=== PATIENT | male | born 1975 | race Caucasian/White ===

== ENCOUNTER 2016-06-30 12:12 | Emergency (ER) | payer OTHER ==
[2016-06-30 12:56] LABS: BASO % 0.4 % (0.0-1.0); EOS # 0.1 K/mm3 (0.0-0.50); EOS % 2.6 % (0.0-3.0); LARGE UNSTAINED CELL # 0.1 K/mm3 (0.0-0.4); LARGE UNSTAINED CELL % 2.6 % (0.0-4.0); LYMPH # 0.9 K/mm3 (1.5-4.5); LYMPH % 21.5 % (24.0-44.0); MEAN CORPUSCULAR HEMOGLOBIN 31.6 pg (27.0-33.0); MONO # 0.3 K/mm3 (0.0-0.8); MONO % 6.8 % (0.0-5.0); NEUTROPHILS # 2.8 K/mm3 (1.8-7.7); PLATELET COUNT, AUTOMATED 256 k/mm3 (150-450); RED CELL DISTRIBUTION WIDTH 12.8 % (11.5-14.5); WHITE BLOOD COUNT 4.2 K/mm3 (4.0-10.0)
[2016-06-30 13:17] LABS: ANION GAP 11 MEQ/L (8-16); BLOOD UREA NITROGEN 8 MG/DL (7-18); CALCIUM LEVEL 8.3 MG/DL (8.5-10.1); CARBON DIOXIDE LEVEL 25 MEQ/L (21-32); CHLORIDE LEVEL 102 MEQ/L (98-107); CREATININE FOR GFR 0.72 MG/DL (0.70-1.30); GLOMERULAR FILTRATION RATE > 60.0 (>60); GLUCOSE, FASTING 159 MG/DL (70-105); POTASSIUM SERUM 3.8 MEQ/L (3.5-5.1); SODIUM LEVEL 138 MEQ/L (136-145)
[2016-06-30] MEDS ORDERED: THIAMINE 100 MG TAB As Ordered ONE (14:26)
[2016-06-30] MEDS ORDERED: OXAZEPAM 15 MG CAP As Ordered ONE (14:26)
[2016-06-30 14:33] LABS: AMPHETAMINES LEVEL URINE NEGATIVE (NEGATIVE); BENZODIAZEPINES URINE NEGATIVE (NEGATIVE); COCAINE METABOLITE URINE NEGATIVE (NEGATIVE); CONTROL LINE INT CTR LINE PRESENT; METHADONE URINE NEGATIVE (NEGATIVE); OPIATES URINE NEGATIVE (NEGATIVE); TRICYCLIC ANTIDEPRESS URINE NEGATIVE (NEGATIVE)
[2016-06-30 14:47] LABS: FREE T4 0.77 NG/DL (0.76-1.46)
--- NOTE | 2016-06-30 17:22 | EDDOCDS ---
Nurse's Notes [facility] Name: Ladarius Merino Age: 40 yrs Sex: Male : 1975 Arrival Date: 06/30/2016 Time: 12:12 Bed 14 Private MD: Camilo Harrison A. Diagnosis: Palpitations Presentation: 06/30 12:19 Presenting complaint: Patient states: has been on suboxine , took his last dose 8 mg mk4 yesterday and started this new herbal supplement rhianna Guy... has also been drinking alcohol. 12:24 Adult Sepsis Screening: The patient does not have new or worsening altered mentation. mk4 Patient's respiratory rate is less than 22. Systolic blood pressure is greater than 100. Patient has a qSOFA score of 0- Negative Sepsis Screen. Suicide/Homicide risk assessment- the patient denies having any suicidal and/or homicidal ideations and does not present with any other emotional, behavioral or mental health complaints. Status: Patient is not a family services worker or dependent. Transition of care: patient was not received from another setting of care. 12:24 Acuity: MIKA Level 3 mk4 12:24 Method Of Arrival: Ambulance mk4 Triage Assessment: 12:24 General: Appears in no apparent distress, Behavior is agitated, restless, jittery. mk4 17:20 HIV screening NA for this visit Offered previously. mk4 Historical: - Allergies: no known allergies; - Home Meds: 1. herbal supplement called Malena - PMHx: Cervicle spine fracture; Fractured left wrist; Hypertension; - PSHx: Left flexor tendon repair; Nasal surgery; - Social history: Smoking status: Patient uses tobacco products, heavy tobacco smoker. No barriers to communication noted, The patient speaks fluent Macedonian. - Family history: Not pertinent. - : The pt / caregiver states he / she is not on anticoagulants. Home medication list is obtained from the patient. - Exposure Risk Screening:: None identified. Screenin:40 Screening information is obtained from the patient. Fall risk: No risks identified. mk4 Assistance ADL's: requires no assistance with activities of daily living. Abuse/DV Screen: The patient / caregiver reports he/she is: not in a situation that causes fear, pain or injury. Nutritional screening: No deficits noted. Advance Directives: Currently, there is no health care proxy. There is no active DNR order. There is no living will. There is no Power of Rotor Assembler. Advance directive information has not previously been placed in an [facility] medical record. home support is adequate. Assessment: 12:20 General: Appears distressed, Behavior is cooperative, restless, pt states he took 2 mk4 grams of a herbal supplement in tea form named Kratom and felt shaky and nervous and tingly afterward. 12:49 Reassessment: Patient denies pain at this time. Patient states feeling better. Patient mk4 states symptoms have improved. General: Appears in no apparent distress. 12:52 General: Appears poison control contacted with recomendations. mk4 14:21 Reassessment: Patient states feeling better. Patient states symptoms have improved. mk4 General: Appears in no apparent distress, comfortable, Behavior is cooperative. Cardiovascular: Rhythm is sinus rhythm. 14:45 Reassessment: Patient denies pain at this time. Patient states feeling better. General: mk4 Appears in no apparent distress, comfortable. 14:47 Pain: Denies pain. Neurological: Level of Consciousness is awake, alert, Oriented to mk4 person, place, time. Derm: Skin is intact, is healthy with good turgor. 15:18 General: Appears in no apparent distress, comfortable, Behavior is cooperative, oob mk4 ambulating to bathroom, gait steady. Neurological: Level of Consciousness is awake, alert, Oriented to person. Cardiovascular: Rhythm is sinus rhythm No ectopy. 16:45 General: Appears in no apparent distress, comfortable, Behavior is cooperative, social mk4 worker in speaking with pt. 16:52 General: Appears in no apparent distress, comfortable, Behavior is cooperative. mk4 Neurological: Level of Consciousness is awake, alert, Oriented to person, place, time. 17:18 General: Appears in no apparent distress, comfortable. mk4 Social Work Consult: 16:28 Social Work Note: Met pt at bedside regarding drug abuse. Pt report a hx of opiate ml4 abuse, and now has been taking Suboxone, last dose yesterday. Admits purchasing Kratom and mixed his supplement with coffee this am and immediately felt shaky and complained of chest pain. He adamantly denies SI and HI, able to CFS. Referrals for outpt services was given at bedside and directed to contact Dr. Pro for further tx. Message was left on Dr. Su's voice mail(with pt's permission). No further concerns noted. Vital Signs: 12:11 Pulse 82 MON; Pulse Ox 98% ; mk4 12:12 BP 193 / 72 (auto/); mk4 12:22 BP 148 / 91; Pulse 105; Resp 20; Temp 99.8; Pulse Ox 98% ; Weight 74.84 kg; Height 5 jlf ft. 5 in. (165.10 cm); 12:39 BP 157 / 107 (auto/); mk4 12:39 Pulse 98 MON; Pulse Ox 95% ; mk4 12:40 Pulse 102 MON; Pulse Ox 96% ; mk4 12:42 BP 143 / 62 (auto/); mk4 12:42 Pulse 82 MON; Pulse Ox 96% ; mk4 12:54 BP 146 / 89 (auto/); mk4 12:54 Pulse 100 MON; Pulse Ox 94% ; mk4 13:00 BP 130 / 59 (auto/); mk4 13:00 Pulse 84 MON; Pulse Ox 99% ; mk4 13:02 BP 165 / 94 LA Supine; Pulse 99; mk4 13:04 BP 161 / 95 Sitting; Pulse 113 RA; mk4 13:04 BP 179 / 119 Standing; Pulse 116 RA; mk4 13:12 BP 143 / 63 (auto/); mk4 13:13 Pulse 82 MON; Pulse Ox 96% ; mk4 13:24 BP 165 / 83 (auto/); mk4 13:24 Pulse 100 MON; Pulse Ox 96% ; mk4 13:32 BP 145 / 63 (auto/); mk4 13:32 Pulse 68 MON; Pulse Ox 99% ; mk4 13:42 BP 174 / 66 (auto/); mk4 13:43 Pulse 86 MON; Pulse Ox 96% ; mk4 13:54 BP 139 / 89 (auto/); mk4 13:54 Pulse 96 MON; Pulse Ox 94% ; mk4 14:11 BP 162 / 94 (auto/); mk4 14:11 Pulse 102 MON; Pulse Ox 96% ; mk4 14:24 BP 155 / 102 (auto/); mk4 14:24 Pulse 94 MON; Pulse Ox 96% ; mk4 14:39 BP 154 / 88 (auto/); mk4 14:39 Pulse 88 MON; Pulse Ox 95% ; mk4 14:42 BP 159 / 66 (auto/); mk4 14:42 Pulse 66 MON; Pulse Ox 96% ; mk4 14:52 Pulse 66 MON; Pulse Ox 97% ; mk4 14:53 BP 141 / 63 (auto/); mk4 17:09 BP 140 / 83 (auto/); mk4 17:09 Pulse 86 MON; Resp 20; Temp 98; Pulse Ox 93% ; mk4 12:22 Body Mass Index 27.46 (74.84 kg, 165.10 cm) [facility] Vitals: 12:24 Log In Time N/A - ambulance arrival. mk4 ED Course: 12:14 Patient visited by Urvashi Steinberg, Grounds Foreman. lbd 12:14 Camilo Harrison is Private Physician. lbd 12:14 Patient moved to Waiting lbd 12:15 Patient moved to 14 lbd 12:22 Patient visited by Shruthi Rios PCA. jlf 12:22 Patient visited by Shruthi Rios PCA. jlf 12:25 Triage Initiated mk4 12:40 Maintain field IV. Site clean & dry. Gauge & site: left ac . IV. mk4 12:41 MED Profile Sent. mk4 12:41 CBC with Diff Sent. mk4 12:46 Patient visited by Saravanan Han PCA. jrd 12:46 EKG done. (by ED staff). Reviewed by Carie Raymundo MD. jrd 12:47 The patient / caregiver is instructed regarding the plan of care and ED course. Cardiac mk4 monitor on. Pulse ox on. NIBP on. 12:53 Romina Ugarte DO is PHCP. jo4 12:54 Carie Raymundo MD is Attending Physician. jo4 12:59 Patient visited by Romina Ugarte DO. jo4 13:06 No procedures done that require assistance. mk4 13:35 Patient visited by Janett Lynch RN. mk4 14:04 Patient visited by Shruthi Rios PCA. jlf 14:34 Patient visited by Shruthi Rios PCA. jlf 15:15 Patient visited by Janett Lynch, TOMASZ. mk4 15:51 Patient visited by Janett Lynch RN. mk4 16:11 [facility] Payment Agreement was scanned into [employer] and attached to record. zo 16:21 Patient visited by Janett Lynch RN. mk4 16:50 PSA Outpatient Referrals was scanned into [employer] and attached to record. ml4 16:52 Patient visited by Janett Lynch RN. mk4 17:00 Camilo Harrison MD is Referral Physician. jo4 17:18 Discontinued IV lock bleeding controlled, pressure dressing applied. mk4 Administered Medications: 13:05 Drug: NS 0.9% 1000 ml [sodium chloride 0.9 % intravenous solution] Route: IV; Rate: mk4 bolus; Site: left antecubital; 14:41 Drug: Oxazepam 30 mg [oxazepam 15 mg capsule (2 caps)] Route: PO; mk4 14:41 Drug: Thiamine 100 mg [thiamine HCl (vitamin B1) 100 mg tablet (1 tabs)] Route: PO; mk4 Order Results: Lab Order: CBC with Diff; SPEC'M 06/30/16 12:39 Test: WHITE BLOOD COUNT; Value: 4.2; Range: 4.0-10.0; Units: K/mm3; Status: F Test: RED BLOOD COUNT; Value: 4.66; Range: 4.30-6.10; Units: M/mm3; Status: F Test: HEMOGLOBIN; Value: 14.7; Range: 14.0-18.0; Units: g/dl; Status: F Test: HEMATOCRIT; Value: 43.4; Range: 42.0-52.0; Units: %; Status: F Test: MEAN CORPUSCULAR VOLUME; Value: 93.0; Range: 80.0-96.0; Units: fl; Status: F Test: MEAN CORPUSCULAR HEMOGLOBIN; Value: 31.6; Range: 27.0-33.0; Units: pg; Status: F Test: MEAN CORPUSCULAR HGB CONC; Value: 34.0; Range: 32.0-36.5; Units: g/dl; Status: F Test: RED CELL DISTRIBUTION WIDTH; Value: 12.8; Range: 11.5-14.5; Units: %; Status: F Test: PLATELET COUNT, AUTOMATED; Value: 256; Range: 150-450; Units: k/mm3; Status: F Test: NEUTROPHILS %; Value: 66.0; Range: 36.0-66.0; Units: %; Status: F Test: LYMPH %; Value: 21.5; Range: 24.0-44.0; Abnormal: Below low normal; Units: %; Status: F Test: MONO %; Value: 6.8; Range: 0.0-5.0; Abnormal: Above high normal; Units: %; Status: F Test: EOS %; Value: 2.6; Range: 0.0-3.0; Units: %; Status: F Test: BASO %; Value: 0.4; Range: 0.0-1.0; Units: %; Status: F Test: LARGE UNSTAINED CELL %; Value: 2.6; Range: 0.0-4.0; Units: %; Status: F Test: NEUTROPHILS #; Value: 2.8; Range: 1.8-7.7; Units: K/mm3; Status: F Test: LYMPH #; Value: 0.9; Range: 1.5-4.5; Abnormal: Below low normal; Units: K/mm3; Status: F Test: MONO #; Value: 0.3; Range: 0.0-0.8; Units: K/mm3; Status: F Test: EOS #; Value: 0.1; Range: 0.0-0.50; Units: K/mm3; Status: F Test: BASO #; Value: 0.0; Range: 0.0-0.2; Units: K/mm3; Status: F Test: LARGE UNSTAINED CELL #; Value: 0.1; Range: 0.0-0.4; Units: K/mm3; Status: F Lab Order: MED Profile; SPEC'M 06/30/16 12:39 Test: GLUCOSE, FASTING; Value: 159; Range: 70-105; Abnormal: Above high normal; Units: MG/DL; Status: F Test: BLOOD UREA NITROGEN; Value: 8; Range: 7-18; Units: MG/DL; Status: F Test: CREATININE FOR GFR; Value: 0.72; Range: 0.70-1.30; Units: MG/DL; Status: F Test: GLOMERULAR FILTRATION RATE; Value: > 60.0; Range: >60; Status: F Test: SODIUM LEVEL; Value: 138; Range: 136-145; Units: MEQ/L; Status: F Test: POTASSIUM SERUM; Value: 3.8; Range: 3.5-5.1; Units: MEQ/L; Status: F Test: CHLORIDE LEVEL; Value: 102; Range: 98-107; Units: MEQ/L; Status: F Test: CARBON DIOXIDE LEVEL; Value: 25; Range: 21-32; Units: MEQ/L; Status: F Test: ANION GAP; Value: 11; Range: 8-16; Units: MEQ/L; Status: F Test: CALCIUM LEVEL; Value: 8.3; Range: 8.5-10.1; Abnormal: Below low normal; Units: MG/DL; Status: F Test Note: ; Units are mL/min/1.73 m2 Chronic Kidney Disease Staging per NKF: Stage I & II GFR >=60 Normal to Mildly Decreased Stage III GFR 30-59 Moderately Decreased Stage IV GFR 15-29 Severely Decreased Stage V GFR <15 Very Little GFR Left ESRD GFR <15 on CRIMINAL INTELLIGENCE SPECIALIST Lab Order: Urine Toxicology; SPEC'M 06/30/16 14:09 Test: AMPHETAMINES LEVEL URINE; Value: NEGATIVE; Range: NEGATIVE; Status: F Test: BARBITURATES URINE; Value: NEGATIVE; Range: NEGATIVE; Status: F Test: BENZODIAZEPINES URINE; Value: NEGATIVE; Range: NEGATIVE; Status: F Test: CANNABINOIDS URINE; Value: POSITIVE; Range: NEGATIVE; Abnormal: Above high normal; Status: F Test: COCAINE METABOLITE URINE; Value: NEGATIVE; Range: NEGATIVE; Status: F Test: METHADONE URINE; Value: NEGATIVE; Range: NEGATIVE; Status: F Test: OPIATES URINE; Value: NEGATIVE; Range: NEGATIVE; Status: F Test: TRICYCLIC ANTIDEPRESS URINE; Value: NEGATIVE; Range: NEGATIVE; Status: F Test Note: ; FALSE POSITIVE RESULTS CAN BE CAUSED BY THE USE OF PANTOPRAZOLE (PROTONIX). Lab Order: FT4&TSH PANEL; SPEC'M 06/30/16 12:39 Test: THYROID STIMULATING HORMONE; Value: 0.749; Range: 0.358-3.740; Units: uIU/ML; Status: F Test: FREE T4; Value: 0.77; Range: 0.76-1.46; Units: NG/DL; Status: F Outcome: 17:00 Discharge ordered by Provider. jo4 17:18 Discharge Assessment: Patient awake, alert and oriented x 3. No cognitive and/or mk4 functional deficits noted. Patient verbalized understanding of disposition instructions. Patient awake and alert. Discharge Assessment: patient administered narcotics - no. The following High Risk Discharge criteria are identified: None. Discharged to home ambulatory. Condition: good Condition: stable. No special radiology studies were completed. Property sent home with patient. 17:21 Patient left the ED. mk4 Signatures: Urvashi Steinberg, Grounds Foreman Unit lbd Curly Heck, RN RN Marleny Laws, PSA PSA ml4 Jacob, Janett Silva RN RN mk4 Shruthi Rios, DIRECTOR OF RESIDENTIAL SERVICES DIRECTOR OF RESIDENTIAL SERVICES jlf Saravanan Han, DIRECTOR OF RESIDENTIAL SERVICES DIRECTOR OF RESIDENTIAL SERVICES jrd Romina Ugarte DO DO jo4 Corrections: (The following items were deleted from the chart) 12:45 12:19 Presenting complaint: Patient states: has been on suboxine , took his last dose 8 mk4 mg yesterday and started this new herbal supplement rhianna Guy... has also been drinking alcohol mk4 14:15 14:08 FT4&TSH PANEL+LAB sent. [facility] EDMS 14:47 12:52 General: Appears poison control contacted with recomendations. mk4 mk4 MTDD
--- NOTE | 2016-06-30 17:22 | EDDOCDS ---
Physician Documentation [facility] Name: Ladarius Merino Age: 40 yrs Sex: Male : 1975 Arrival Date: 06/30/2016 Time: 12:12 Bed 14 Private MD: Camilo Harrison A. Disposition: 06/30 15:45 I have independently interviewed and examined the patient, and I agree with the sd1 investigation, diagnosis and treatment plan as documented by the Resident. Disposition: 06/30/16 17:00 Discharged to Home/Self Care. Impression: Palpitations. - Condition is Stable. - Medication Reconciliation, Local Pharmacy Hours form. - Follow up: Camilo Harrison MD; When: 1 week; Reason: Recheck today's complaints. - Problem is new. - Symptoms have improved. - Notes: You were evaluated in the emergency department for palpitations. Your laboratory results were reported as essentially within normal limits. You were treated medically and there was improvement in your symptoms. You were counseled on drug abuse and referred to social work while in the ED. The social work faculty member made a referral to a suboxone specialist. Please follow-up with Dr. Harrison in 1 week. Historical: - Allergies: no known allergies; - Home Meds: 1. herbal supplement called Malena - PMHx: Cervicle spine fracture; Fractured left wrist; Hypertension; - PSHx: Left flexor tendon repair; Nasal surgery; - Social history: Smoking status: Patient uses tobacco products, heavy tobacco smoker. No barriers to communication noted, The patient speaks fluent Macedonian. - Family history: Not pertinent. - : The pt / caregiver states he / she is not on anticoagulants. Home medication list is obtained from the patient. - Exposure Risk Screening:: None identified. Vital Signs: 12:11 Pulse 82 MON; Pulse Ox 98% ; mk4 12:12 BP 193 / 72 (auto/); mk4 12:22 BP 148 / 91; Pulse 105; Resp 20; Temp 99.8; Pulse Ox 98% ; Weight 74.84 kg / 164.99 jlf lbs; Height 5 ft. 5 in. (165.10 cm); 12:39 BP 157 / 107 (auto/); mk4 12:39 Pulse 98 MON; Pulse Ox 95% ; mk4 12:40 Pulse 102 MON; Pulse Ox 96% ; mk4 12:42 BP 143 / 62 (auto/); mk4 12:42 Pulse 82 MON; Pulse Ox 96% ; mk4 12:54 BP 146 / 89 (auto/); mk4 12:54 Pulse 100 MON; Pulse Ox 94% ; mk4 13:00 BP 130 / 59 (auto/); mk4 13:00 Pulse 84 MON; Pulse Ox 99% ; mk4 13:02 BP 165 / 94 LA Supine; Pulse 99; mk4 13:04 BP 161 / 95 Sitting; Pulse 113 RA; mk4 13:04 BP 179 / 119 Standing; Pulse 116 RA; mk4 13:12 BP 143 / 63 (auto/); mk4 13:13 Pulse 82 MON; Pulse Ox 96% ; mk4 13:24 BP 165 / 83 (auto/); mk4 13:24 Pulse 100 MON; Pulse Ox 96% ; mk4 13:32 BP 145 / 63 (auto/); mk4 13:32 Pulse 68 MON; Pulse Ox 99% ; mk4 13:42 BP 174 / 66 (auto/); mk4 13:43 Pulse 86 MON; Pulse Ox 96% ; mk4 13:54 BP 139 / 89 (auto/); mk4 13:54 Pulse 96 MON; Pulse Ox 94% ; mk4 14:11 BP 162 / 94 (auto/); mk4 14:11 Pulse 102 MON; Pulse Ox 96% ; mk4 14:24 BP 155 / 102 (auto/); mk4 14:24 Pulse 94 MON; Pulse Ox 96% ; mk4 14:39 BP 154 / 88 (auto/); mk4 14:39 Pulse 88 MON; Pulse Ox 95% ; mk4 14:42 BP 159 / 66 (auto/); mk4 14:42 Pulse 66 MON; Pulse Ox 96% ; mk4 14:52 Pulse 66 MON; Pulse Ox 97% ; mk4 14:53 BP 141 / 63 (auto/); mk4 17:09 BP 140 / 83 (auto/); mk4 17:09 Pulse 86 MON; Resp 20; Temp 98; Pulse Ox 93% ; mk4 12:22 Body Mass Index 27.46 (74.84 kg, 165.10 cm) [facility] MDM: 12:26 Orthostatic VS ordered. sd1 12:26 IV Saline Lock ordered. sd1 12:27 NS 0.9% 1000 ml IV at bolus once ordered. sd1 12:28 CBC with Diff Ordered. EDMS 12:28 MED Profile Ordered. EDMS 12:28 ECG WITH READING ER PHYS+CARDIAG ordered. EDMS 13:58 CBC with Diff Reviewed. sd1 13:58 MED Profile Reviewed. sd1 14:01 Oxazepam 30 mg PO once ordered. jo4 14:01 Thiamine 100 mg PO once ordered. jo4 14:03 Urine Toxicology Ordered. EDMS 14:03 2 GRAM SODIUM+DIET ordered. EDMS 14:16 FT4&TSH PANEL Ordered. EDMS 14:20 MED Profile Reviewed. jo4 14:47 Urine Toxicology Reviewed. sd1 15:11 FT4&TSH PANEL Reviewed. jo4 15:12 MED Profile Reviewed. jo4 15:44 Consult: Supervisor Testing ordered. sd1 16:08 Financial registration complete. zo 16:11 [facility] Payment Agreement was scanned into [employer] and attached to record. zo 16:12 Consult: Supervisor Testing complete. ml4 16:50 PSA Outpatient Referrals was scanned into [employer] and attached to record. ml4 Administered Medications: 13:05 Drug: NS 0.9% 1000 ml [sodium chloride 0.9 % intravenous solution] Route: IV; Rate: mk4 bolus; Site: left antecubital; 14:41 Drug: Oxazepam 30 mg [oxazepam 15 mg capsule (2 caps)] Route: PO; mk4 14:41 Drug: Thiamine 100 mg [thiamine HCl (vitamin B1) 100 mg tablet (1 tabs)] Route: PO; mk4 Signatures: Dispatcher [employer] EDNM Carie Raymundo MD MD sd1 Marleny Armijo, PSA PSA ml4 Rudy James Margaret, RN RN mk4 Romina Ugarte DO DO jo4 The chart was reviewed and I authenticate all verbal orders and agree with the evaluation and treatment provided.Corrections: (The following items were deleted from the chart) 14:15 14:03 FT4&TSH PANEL+LAB ordered. EDMS EDMS Attachments: 16:11 [facility] Payment Agreement zo MTDD
--- NOTE | 2016-06-30 20:03 | ECGEPIP ---
Stationary ECG Study [facility] - ED Test Date: 2016-06-30 Pat Name: BALTAZAR BURKETT Department: Room: - Gender: M Brand Leader: david : 1975 Requested By: Carie Raymundo Order Number: [id number] Reading MD: Carie Raymundo Measurements Intervals [place] Rate: 101 P: 75 MD: 152 QRS: -23 QRSD: 103 T: 59 QT: 342 QTc: 444 Interpretive Statements SINUS TACHYCARDIA BORDERLINE LEFT AXIS DEVIATION ABNORMAL RHYTHM ECG NO PRIOR FOR COMPARISON Electronically Signed On 06-30-2016 20:02:53 EST by Carie Raymundo
--- NOTE | 2016-07-02 18:22 | EDDOCDS ---
Nurse's Notes [facility] Name: Ladarius Burkett Age: 40 yrs Sex: Male : 1975 Arrival Date: 06/30/2016 Time: 12:12 Bed 14 Private MD: Camilo Harrison A. Diagnosis: Palpitations Presentation: 06/30 12:19 Presenting complaint: Patient states: has been on suboxine , took his last dose 8 mg mk4 yesterday and started this new herbal supplement rhianna Guy... has also been drinking alcohol. 12:24 Adult Sepsis Screening: The patient does not have new or worsening altered mentation. mk4 Patient's respiratory rate is less than 22. Systolic blood pressure is greater than 100. Patient has a qSOFA score of 0- Negative Sepsis Screen. Suicide/Homicide risk assessment- the patient denies having any suicidal and/or homicidal ideations and does not present with any other emotional, behavioral or mental health complaints. Status: Patient is not a director of medical staff services or dependent. Transition of care: patient was not received from another setting of care. 12:24 Acuity: MIKA Level 3 mk4 12:24 Method Of Arrival: Ambulance mk4 Triage Assessment: 12:24 General: Appears in no apparent distress, Behavior is agitated, restless, jittery. mk4 17:20 HIV screening NA for this visit Offered previously. mk4 Historical: - Allergies: no known allergies; - Home Meds: 1. herbal supplement called Malena - PMHx: Cervicle spine fracture; Fractured left wrist; Hypertension; - PSHx: Left flexor tendon repair; Nasal surgery; - Social history: Smoking status: Patient uses tobacco products, heavy tobacco smoker. No barriers to communication noted, The patient speaks fluent Guatemalan. - Family history: Not pertinent. - : The pt / caregiver states he / she is not on anticoagulants. Home medication list is obtained from the patient. - Exposure Risk Screening:: None identified. Screenin:40 Screening information is obtained from the patient. Fall risk: No risks identified. mk4 Assistance ADL's: requires no assistance with activities of daily living. Abuse/DV Screen: The patient / caregiver reports he/she is: not in a situation that causes fear, pain or injury. Nutritional screening: No deficits noted. Advance Directives: Currently, there is no health care proxy. There is no active DNR order. There is no living will. There is no Power of Cardiology Tech. Advance directive information has not previously been placed in an [facility] medical record. home support is adequate. Assessment: 12:20 General: Appears distressed, Behavior is cooperative, restless, pt states he took 2 mk4 grams of a herbal supplement in tea form named Kratom and felt shaky and nervous and tingly afterward. 12:49 Reassessment: Patient denies pain at this time. Patient states feeling better. Patient mk4 states symptoms have improved. General: Appears in no apparent distress. 12:52 General: Appears poison control contacted with recomendations. mk4 14:21 Reassessment: Patient states feeling better. Patient states symptoms have improved. mk4 General: Appears in no apparent distress, comfortable, Behavior is cooperative. Cardiovascular: Rhythm is sinus rhythm. 14:45 Reassessment: Patient denies pain at this time. Patient states feeling better. General: mk4 Appears in no apparent distress, comfortable. 14:47 Pain: Denies pain. Neurological: Level of Consciousness is awake, alert, Oriented to mk4 person, place, time. Derm: Skin is intact, is healthy with good turgor. 15:18 General: Appears in no apparent distress, comfortable, Behavior is cooperative, oob mk4 ambulating to bathroom, gait steady. Neurological: Level of Consciousness is awake, alert, Oriented to person. Cardiovascular: Rhythm is sinus rhythm No ectopy. 16:45 General: Appears in no apparent distress, comfortable, Behavior is cooperative, social mk4 worker in speaking with pt. 16:52 General: Appears in no apparent distress, comfortable, Behavior is cooperative. mk4 Neurological: Level of Consciousness is awake, alert, Oriented to person, place, time. 17:18 General: Appears in no apparent distress, comfortable. mk4 Social Work Consult: 16:28 Social Work Note: Met pt at bedside regarding drug abuse. Pt report a hx of opiate ml4 abuse, and now has been taking Suboxone, last dose yesterday. Admits purchasing Kratom and mixed his supplement with coffee this am and immediately felt shaky and complained of chest pain. He adamantly denies SI and HI, able to CFS. Referrals for outpt services was given at bedside and directed to contact Dr. Pro for further tx. Message was left on Dr. Su's voice mail(with pt's permission). No further concerns noted. Vital Signs: 12:11 Pulse 82 MON; Pulse Ox 98% ; mk4 12:12 BP 193 / 72 (auto/); mk4 12:22 BP 148 / 91; Pulse 105; Resp 20; Temp 99.8; Pulse Ox 98% ; Weight 74.84 kg; Height 5 jlf ft. 5 in. (165.10 cm); 12:39 BP 157 / 107 (auto/); mk4 12:39 Pulse 98 MON; Pulse Ox 95% ; mk4 12:40 Pulse 102 MON; Pulse Ox 96% ; mk4 12:42 BP 143 / 62 (auto/); mk4 12:42 Pulse 82 MON; Pulse Ox 96% ; mk4 12:54 BP 146 / 89 (auto/); mk4 12:54 Pulse 100 MON; Pulse Ox 94% ; mk4 13:00 BP 130 / 59 (auto/); mk4 13:00 Pulse 84 MON; Pulse Ox 99% ; mk4 13:02 BP 165 / 94 LA Supine; Pulse 99; mk4 13:04 BP 161 / 95 Sitting; Pulse 113 RA; mk4 13:04 BP 179 / 119 Standing; Pulse 116 RA; mk4 13:12 BP 143 / 63 (auto/); mk4 13:13 Pulse 82 MON; Pulse Ox 96% ; mk4 13:24 BP 165 / 83 (auto/); mk4 13:24 Pulse 100 MON; Pulse Ox 96% ; mk4 13:32 BP 145 / 63 (auto/); mk4 13:32 Pulse 68 MON; Pulse Ox 99% ; mk4 13:42 BP 174 / 66 (auto/); mk4 13:43 Pulse 86 MON; Pulse Ox 96% ; mk4 13:54 BP 139 / 89 (auto/); mk4 13:54 Pulse 96 MON; Pulse Ox 94% ; mk4 14:11 BP 162 / 94 (auto/); mk4 14:11 Pulse 102 MON; Pulse Ox 96% ; mk4 14:24 BP 155 / 102 (auto/); mk4 14:24 Pulse 94 MON; Pulse Ox 96% ; mk4 14:39 BP 154 / 88 (auto/); mk4 14:39 Pulse 88 MON; Pulse Ox 95% ; mk4 14:42 BP 159 / 66 (auto/); mk4 14:42 Pulse 66 MON; Pulse Ox 96% ; mk4 14:52 Pulse 66 MON; Pulse Ox 97% ; mk4 14:53 BP 141 / 63 (auto/); mk4 17:09 BP 140 / 83 (auto/); mk4 17:09 Pulse 86 MON; Resp 20; Temp 98; Pulse Ox 93% ; mk4 12:22 Body Mass Index 27.46 (74.84 kg, 165.10 cm) [facility] Vitals: 12:24 Log In Time N/A - ambulance arrival. mk4 ED Course: 12:14 Patient visited by Urvashi Steinberg, Switchboard Wirer. lbd 12:14 Camilo Harrison is Private Physician. lbd 12:14 Patient moved to Waiting lbd 12:15 Patient moved to 14 lbd 12:22 Patient visited by Shruthi Rios PCA. jlf 12:22 Patient visited by Shruthi Rios PCA. jlf 12:25 Triage Initiated mk4 12:40 Maintain field IV. Site clean & dry. Gauge & site: left ac . IV. mk4 12:41 MED Profile Sent. mk4 12:41 CBC with Diff Sent. mk4 12:46 Patient visited by Saravanan Han PCA. jrd 12:46 EKG done. (by ED staff). Reviewed by Carie Raymundo MD. jrd 12:47 The patient / caregiver is instructed regarding the plan of care and ED course. Cardiac mk4 monitor on. Pulse ox on. NIBP on. 12:53 Romina Ugarte DO is PHCP. jo4 12:54 Carie Raymundo MD is Attending Physician. jo4 12:59 Patient visited by Romina Ugarte DO. jo4 13:06 No procedures done that require assistance. mk4 13:35 Patient visited by Janett Lynch RN. mk4 14:04 Patient visited by Shruthi Rios PCA. jlf 14:34 Patient visited by Shruthi Rios PCA. jlf 15:15 Patient visited by Janett Lynch, TOMASZ. mk4 15:51 Patient visited by Janett Lynch RN. mk4 16:11 [facility] Payment Agreement was scanned into [employer] and attached to record. zo 16:21 Patient visited by Janett Lynch RN. mk4 16:50 PSA Outpatient Referrals was scanned into [employer] and attached to record. ml4 16:52 Patient visited by Janett Lynch RN. mk4 17:00 Camilo Harrison MD is Referral Physician. jo4 17:18 Discontinued IV lock bleeding controlled, pressure dressing applied. mk4 20:25 EKG-ADULT Returned. EDMS 07/01 10:12 T-Sheet-- Draft Copy was scanned into [employer] and attached to record. gb 10:12 ECG/EKG was scanned into [employer] and attached to record. gb Administered Medications: 06/30 13:05 Drug: NS 0.9% 1000 ml [sodium chloride 0.9 % intravenous solution] Route: IV; Rate: mk4 bolus; Site: left antecubital; 14:41 Drug: Oxazepam 30 mg [oxazepam 15 mg capsule (2 caps)] Route: PO; mk4 14:41 Drug: Thiamine 100 mg [thiamine HCl (vitamin B1) 100 mg tablet (1 tabs)] Route: PO; mk4 Order Results: Lab Order: CBC with Diff; SPEC'M 06/30/16 12:39 Test: WHITE BLOOD COUNT; Value: 4.2; Range: 4.0-10.0; Units: K/mm3; Status: F Test: RED BLOOD COUNT; Value: 4.66; Range: 4.30-6.10; Units: M/mm3; Status: F Test: HEMOGLOBIN; Value: 14.7; Range: 14.0-18.0; Units: g/dl; Status: F Test: HEMATOCRIT; Value: 43.4; Range: 42.0-52.0; Units: %; Status: F Test: MEAN CORPUSCULAR VOLUME; Value: 93.0; Range: 80.0-96.0; Units: fl; Status: F Test: MEAN CORPUSCULAR HEMOGLOBIN; Value: 31.6; Range: 27.0-33.0; Units: pg; Status: F Test: MEAN CORPUSCULAR HGB CONC; Value: 34.0; Range: 32.0-36.5; Units: g/dl; Status: F Test: RED CELL DISTRIBUTION WIDTH; Value: 12.8; Range: 11.5-14.5; Units: %; Status: F Test: PLATELET COUNT, AUTOMATED; Value: 256; Range: 150-450; Units: k/mm3; Status: F Test: NEUTROPHILS %; Value: 66.0; Range: 36.0-66.0; Units: %; Status: F Test: LYMPH %; Value: 21.5; Range: 24.0-44.0; Abnormal: Below low normal; Units: %; Status: F Test: MONO %; Value: 6.8; Range: 0.0-5.0; Abnormal: Above high normal; Units: %; Status: F Test: EOS %; Value: 2.6; Range: 0.0-3.0; Units: %; Status: F Test: BASO %; Value: 0.4; Range: 0.0-1.0; Units: %; Status: F Test: LARGE UNSTAINED CELL %; Value: 2.6; Range: 0.0-4.0; Units: %; Status: F Test: NEUTROPHILS #; Value: 2.8; Range: 1.8-7.7; Units: K/mm3; Status: F Test: LYMPH #; Value: 0.9; Range: 1.5-4.5; Abnormal: Below low normal; Units: K/mm3; Status: F Test: MONO #; Value: 0.3; Range: 0.0-0.8; Units: K/mm3; Status: F Test: EOS #; Value: 0.1; Range: 0.0-0.50; Units: K/mm3; Status: F Test: BASO #; Value: 0.0; Range: 0.0-0.2; Units: K/mm3; Status: F Test: LARGE UNSTAINED CELL #; Value: 0.1; Range: 0.0-0.4; Units: K/mm3; Status: F Lab Order: MED Profile; SPEC'M 06/30/16 12:39 Test: GLUCOSE, FASTING; Value: 159; Range: 70-105; Abnormal: Above high normal; Units: MG/DL; Status: F Test: BLOOD UREA NITROGEN; Value: 8; Range: 7-18; Units: MG/DL; Status: F Test: CREATININE FOR GFR; Value: 0.72; Range: 0.70-1.30; Units: MG/DL; Status: F Test: GLOMERULAR FILTRATION RATE; Value: > 60.0; Range: >60; Status: F Test: SODIUM LEVEL; Value: 138; Range: 136-145; Units: MEQ/L; Status: F Test: POTASSIUM SERUM; Value: 3.8; Range: 3.5-5.1; Units: MEQ/L; Status: F Test: CHLORIDE LEVEL; Value: 102; Range: 98-107; Units: MEQ/L; Status: F Test: CARBON DIOXIDE LEVEL; Value: 25; Range: 21-32; Units: MEQ/L; Status: F Test: ANION GAP; Value: 11; Range: 8-16; Units: MEQ/L; Status: F Test: CALCIUM LEVEL; Value: 8.3; Range: 8.5-10.1; Abnormal: Below low normal; Units: MG/DL; Status: F Test Note: ; Units are mL/min/1.73 m2 Chronic Kidney Disease Staging per NKF: Stage I & II GFR >=60 Normal to Mildly Decreased Stage III GFR 30-59 Moderately Decreased Stage IV GFR 15-29 Severely Decreased Stage V GFR <15 Very Little GFR Left ESRD 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 <15 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 Lab Order: Urine Toxicology; SPEC'M 06/30/16 14:09 Test: AMPHETAMINES LEVEL URINE; Value: NEGATIVE; Range: NEGATIVE; Status: F Test: BARBITURATES URINE; Value: NEGATIVE; Range: NEGATIVE; Status: F Test: BENZODIAZEPINES URINE; Value: NEGATIVE; Range: NEGATIVE; Status: F Test: CANNABINOIDS URINE; Value: POSITIVE; Range: NEGATIVE; Abnormal: Above high normal; Status: F Test: COCAINE METABOLITE URINE; Value: NEGATIVE; Range: NEGATIVE; Status: F Test: METHADONE URINE; Value: NEGATIVE; Range: NEGATIVE; Status: F Test: OPIATES URINE; Value: NEGATIVE; Range: NEGATIVE; Status: F Test: TRICYCLIC ANTIDEPRESS URINE; Value: NEGATIVE; Range: NEGATIVE; Status: F Test Note: ; FALSE POSITIVE RESULTS CAN BE CAUSED BY THE USE OF PANTOPRAZOLE (PROTONIX). Lab Order: FT4&TSH PANEL; SPEC'M 06/30/16 12:39 Test: THYROID STIMULATING HORMONE; Value: 0.749; Range: 0.358-3.740; Units: uIU/ML; Status: F Test: FREE T4; Value: 0.77; Range: 0.76-1.46; Units: NG/DL; Status: F Radiology Order: EKG-ADULT Test: EKG-ADULT REASON FOR EXAMINATION: dizzy; Stationary ECG Study; [facility] - ED; ; Test Date: 2016-06-30; Pat Name: LADARIUS BURKETT Department:; Room: -; Gender: M Vp Analysis: david; : 1975 Requested By: Carie Raymundo; Order Number: [id number] Reading MD: Carie Raymundo; Measurements; Intervals [place]; Rate: 101 P: 75; OH: 152 QRS: -23; QRSD: 103 T: 59; QT: 342; QTc: 444; Interpretive Statements; SINUS TACHYCARDIA; BORDERLINE LEFT AXIS DEVIATION; ABNORMAL RHYTHM ECG; NO PRIOR FOR COMPARISON; Electronically Signed On 06-30-2016 20:02:53 EST by Carie Raymundo; Outcome: 17:00 Discharge ordered by Provider. jo4 17:18 Discharge Assessment: Patient awake, alert and oriented x 3. No cognitive and/or mk4 functional deficits noted. Patient verbalized understanding of disposition instructions. Patient awake and alert. Discharge Assessment: patient administered narcotics - no. The following High Risk Discharge criteria are identified: None. Discharged to home ambulatory. Condition: good Condition: stable. No special radiology studies were completed. Property sent home with patient. 17:21 Patient left the ED. mk4 Signatures: Dispatcher [employer] EDMS Urvashi Steinberg, Switchboard Wirer Unit lbd Gisella Chaney, Reg Reg Curly Ojeda, RN RN Marleny Laws, PSA PSA ml4 Rudy James Margaret RN RN mk4 Shruthi Rios, FOOD AND BEVERAGE DIRECTOR FOOD AND BEVERAGE DIRECTOR Saravanan Doll, FOOD AND BEVERAGE DIRECTOR FOOD AND BEVERAGE DIRECTOR Romina Kumar DO DO jo4 Corrections: (The following items were deleted from the chart) 12:45 12:19 Presenting complaint: Patient states: has been on suboxine , took his last dose 8 mk4 mg yesterday and started this new herbal supplement rhianna Guy... has also been drinking alcohol mk4 14: 14:08 FT4&TSH PANEL+LAB sent. jackson EDMS 14:47 12:52 General: Appears poison control contacted with recomendations. mkLuci mk4 Chart Complete MTDD
--- NOTE | 2016-07-02 18:22 | EDDOCDS ---
Physician Documentation [facility] Name: Ladarius Merino Age: 40 yrs Sex: Male : 1975 Arrival Date: 06/30/2016 Time: 12:12 Bed 14 Private MD: Camilo Harrison A. Disposition: 06/30 15:45 I have independently interviewed and examined the patient, and I agree with the sd1 investigation, diagnosis and treatment plan as documented by the Resident. Disposition: 06/30/16 17:00 Discharged to Home/Self Care. Impression: Palpitations. - Condition is Stable. - Medication Reconciliation, Local Pharmacy Hours form. - Follow up: Camilo Harrison MD; When: 1 week; Reason: Recheck today's complaints. - Problem is new. - Symptoms have improved. - Notes: You were evaluated in the emergency department for palpitations. Your laboratory results were reported as essentially within normal limits. You were treated medically and there was improvement in your symptoms. You were counseled on drug abuse and referred to social work while in the ED. The rn social work made a referral to a suboxone specialist. Please follow-up with Dr. Harrison in 1 week. Historical: - Allergies: no known allergies; - Home Meds: 1. herbal supplement called Malena - PMHx: Cervicle spine fracture; Fractured left wrist; Hypertension; - PSHx: Left flexor tendon repair; Nasal surgery; - Social history: Smoking status: Patient uses tobacco products, heavy tobacco smoker. No barriers to communication noted, The patient speaks fluent Kenyan. - Family history: Not pertinent. - : The pt / caregiver states he / she is not on anticoagulants. Home medication list is obtained from the patient. - Exposure Risk Screening:: None identified. Vital Signs: 12:11 Pulse 82 MON; Pulse Ox 98% ; mk4 12:12 BP 193 / 72 (auto/); mk4 12:22 BP 148 / 91; Pulse 105; Resp 20; Temp 99.8; Pulse Ox 98% ; Weight 74.84 kg / 164.99 jlf lbs; Height 5 ft. 5 in. (165.10 cm); 12:39 BP 157 / 107 (auto/); mk4 12:39 Pulse 98 MON; Pulse Ox 95% ; mk4 12:40 Pulse 102 MON; Pulse Ox 96% ; mk4 12:42 BP 143 / 62 (auto/); mk4 12:42 Pulse 82 MON; Pulse Ox 96% ; mk4 12:54 BP 146 / 89 (auto/); mk4 12:54 Pulse 100 MON; Pulse Ox 94% ; mk4 13:00 BP 130 / 59 (auto/); mk4 13:00 Pulse 84 MON; Pulse Ox 99% ; mk4 13:02 BP 165 / 94 LA Supine; Pulse 99; mk4 13:04 BP 161 / 95 Sitting; Pulse 113 RA; mk4 13:04 BP 179 / 119 Standing; Pulse 116 RA; mk4 13:12 BP 143 / 63 (auto/); mk4 13:13 Pulse 82 MON; Pulse Ox 96% ; mk4 13:24 BP 165 / 83 (auto/); mk4 13:24 Pulse 100 MON; Pulse Ox 96% ; mk4 13:32 BP 145 / 63 (auto/); mk4 13:32 Pulse 68 MON; Pulse Ox 99% ; mk4 13:42 BP 174 / 66 (auto/); mk4 13:43 Pulse 86 MON; Pulse Ox 96% ; mk4 13:54 BP 139 / 89 (auto/); mk4 13:54 Pulse 96 MON; Pulse Ox 94% ; mk4 14:11 BP 162 / 94 (auto/); mk4 14:11 Pulse 102 MON; Pulse Ox 96% ; mk4 14:24 BP 155 / 102 (auto/); mk4 14:24 Pulse 94 MON; Pulse Ox 96% ; mk4 14:39 BP 154 / 88 (auto/); mk4 14:39 Pulse 88 MON; Pulse Ox 95% ; mk4 14:42 BP 159 / 66 (auto/); mk4 14:42 Pulse 66 MON; Pulse Ox 96% ; mk4 14:52 Pulse 66 MON; Pulse Ox 97% ; mk4 14:53 BP 141 / 63 (auto/); mk4 17:09 BP 140 / 83 (auto/); mk4 17:09 Pulse 86 MON; Resp 20; Temp 98; Pulse Ox 93% ; mk4 12:22 Body Mass Index 27.46 (74.84 kg, 165.10 cm) [facility] MDM: 12:26 Orthostatic VS ordered. sd1 12:26 IV Saline Lock ordered. sd1 12:27 NS 0.9% 1000 ml IV at bolus once ordered. sd1 12:28 CBC with Diff Ordered. EDMS 12:28 MED Profile Ordered. EDMS 12:28 ECG WITH READING ER PHYS+CARDIAG ordered. EDMS 13:58 CBC with Diff Reviewed. sd1 13:58 MED Profile Reviewed. sd1 14:01 Oxazepam 30 mg PO once ordered. jo4 14:01 Thiamine 100 mg PO once ordered. jo4 14:03 Urine Toxicology Ordered. EDMS 14:03 2 GRAM SODIUM+DIET ordered. EDMS 14:16 FT4&TSH PANEL Ordered. EDMS 14:20 MED Profile Reviewed. jo4 14:47 Urine Toxicology Reviewed. sd1 15:11 FT4&TSH PANEL Reviewed. jo4 15:12 MED Profile Reviewed. jo4 15:44 Consult: Per Diem Nurse ordered. sd1 16:08 Financial registration complete. zo 16:11 [facility] Payment Agreement was scanned into [employer] and attached to record. zo 16:12 Consult: Per Diem Nurse complete. ml4 16:50 PSA Outpatient Referrals was scanned into [employer] and attached to record. ml4 07/01 10:12 T-Sheet-- Draft Copy was scanned into [employer] and attached to record. gb 10:12 ECG/EKG was scanned into [employer] and attached to record. gb Administered Medications: 06/30 13:05 Drug: NS 0.9% 1000 ml [sodium chloride 0.9 % intravenous solution] Route: IV; Rate: mk4 bolus; Site: left antecubital; 14:41 Drug: Oxazepam 30 mg [oxazepam 15 mg capsule (2 caps)] Route: PO; mk4 14:41 Drug: Thiamine 100 mg [thiamine HCl (vitamin B1) 100 mg tablet (1 tabs)] Route: PO; mk4 Signatures: Dispatcher [employer] EDMS Carie Raymundo MD MD sd1 Gisella Chaney, Reg Reg gb Marleny Armijo, PSA PSA ml4 Rudy James Margaret, RN RN mk4 Romina Ugarte DO DO jo4 The chart was reviewed and I authenticate all verbal orders and agree with the evaluation and treatment provided.Corrections: (The following items were deleted from the chart) 14:15 14:03 FT4&TSH PANEL+LAB ordered. EDMS EDMS Attachments: 16:11 [facility] Payment Agreement zo 07/01 10:12 T-Sheet-- Draft Copy gb 10:12 ECG/EKG gb Chart Complete MTDD
--- NOTE | 2016-07-02 18:22 | EDDOCDS ---
Physician Documentation [facility] Name: Ladarius Merino Age: 40 yrs Sex: Male : 1975 Arrival Date: 06/30/2016 Time: 12:12 Bed 14 Private MD: Camilo Harrison A. Disposition: 06/30 15:45 I have independently interviewed and examined the patient, and I agree with the sd1 investigation, diagnosis and treatment plan as documented by the Resident. Disposition: 06/30/16 17:00 Discharged to Home/Self Care. Impression: Palpitations. - Condition is Stable. - Medication Reconciliation, Local Pharmacy Hours form. - Follow up: Camilo Harrison MD; When: 1 week; Reason: Recheck today's complaints. - Problem is new. - Symptoms have improved. - Notes: You were evaluated in the emergency department for palpitations. Your laboratory results were reported as essentially within normal limits. You were treated medically and there was improvement in your symptoms. You were counseled on drug abuse and referred to social work while in the ED. The social security specialist made a referral to a suboxone specialist. Please follow-up with Dr. Harrison in 1 week. Historical: - Allergies: no known allergies; - Home Meds: 1. herbal supplement called Malena - PMHx: Cervicle spine fracture; Fractured left wrist; Hypertension; - PSHx: Left flexor tendon repair; Nasal surgery; - Social history: Smoking status: Patient uses tobacco products, heavy tobacco smoker. No barriers to communication noted, The patient speaks fluent [place]. - Family history: Not pertinent. - : The pt / caregiver states he / she is not on anticoagulants. Home medication list is obtained from the patient. - Exposure Risk Screening:: None identified. Vital Signs: 12:11 Pulse 82 MON; Pulse Ox 98% ; mk4 12:12 BP 193 / 72 (auto/); mk4 12:22 BP 148 / 91; Pulse 105; Resp 20; Temp 99.8; Pulse Ox 98% ; Weight 74.84 kg / 164.99 jlf lbs; Height 5 ft. 5 in. (165.10 cm); 12:39 BP 157 / 107 (auto/); mk4 12:39 Pulse 98 MON; Pulse Ox 95% ; mk4 12:40 Pulse 102 MON; Pulse Ox 96% ; mk4 12:42 BP 143 / 62 (auto/); mk4 12:42 Pulse 82 MON; Pulse Ox 96% ; mk4 12:54 BP 146 / 89 (auto/); mk4 12:54 Pulse 100 MON; Pulse Ox 94% ; mk4 13:00 BP 130 / 59 (auto/); mk4 13:00 Pulse 84 MON; Pulse Ox 99% ; mk4 13:02 BP 165 / 94 LA Supine; Pulse 99; mk4 13:04 BP 161 / 95 Sitting; Pulse 113 RA; mk4 13:04 BP 179 / 119 Standing; Pulse 116 RA; mk4 13:12 BP 143 / 63 (auto/); mk4 13:13 Pulse 82 MON; Pulse Ox 96% ; mk4 13:24 BP 165 / 83 (auto/); mk4 13:24 Pulse 100 MON; Pulse Ox 96% ; mk4 13:32 BP 145 / 63 (auto/); mk4 13:32 Pulse 68 MON; Pulse Ox 99% ; mk4 13:42 BP 174 / 66 (auto/); mk4 13:43 Pulse 86 MON; Pulse Ox 96% ; mk4 13:54 BP 139 / 89 (auto/); mk4 13:54 Pulse 96 MON; Pulse Ox 94% ; mk4 14:11 BP 162 / 94 (auto/); mk4 14:11 Pulse 102 MON; Pulse Ox 96% ; mk4 14:24 BP 155 / 102 (auto/); mk4 14:24 Pulse 94 MON; Pulse Ox 96% ; mk4 14:39 BP 154 / 88 (auto/); mk4 14:39 Pulse 88 MON; Pulse Ox 95% ; mk4 14:42 BP 159 / 66 (auto/); mk4 14:42 Pulse 66 MON; Pulse Ox 96% ; mk4 14:52 Pulse 66 MON; Pulse Ox 97% ; mk4 14:53 BP 141 / 63 (auto/); mk4 17:09 BP 140 / 83 (auto/); mk4 17:09 Pulse 86 MON; Resp 20; Temp 98; Pulse Ox 93% ; mk4 12:22 Body Mass Index 27.46 (74.84 kg, 165.10 cm) [facility] MDM: 12:26 Orthostatic VS ordered. sd1 12:26 IV Saline Lock ordered. sd1 12:27 NS 0.9% 1000 ml IV at bolus once ordered. sd1 12:28 CBC with Diff Ordered. EDMS 12:28 MED Profile Ordered. EDMS 12:28 ECG WITH READING ER PHYS+CARDIAG ordered. EDMS 13:58 CBC with Diff Reviewed. sd1 13:58 MED Profile Reviewed. sd1 14:01 Oxazepam 30 mg PO once ordered. jo4 14:01 Thiamine 100 mg PO once ordered. jo4 14:03 Urine Toxicology Ordered. EDMS 14:03 2 GRAM SODIUM+DIET ordered. EDMS 14:16 FT4&TSH PANEL Ordered. EDMS 14:20 MED Profile Reviewed. jo4 14:47 Urine Toxicology Reviewed. sd1 15:11 FT4&TSH PANEL Reviewed. jo4 15:12 MED Profile Reviewed. jo4 15:44 Consult: Evaluation Assistant ordered. sd1 16:08 Financial registration complete. zo 16:11 [place] [place] into [employer] and attached to record. zo 16:12 Consult: Evaluation Assistant complete. ml4 16:50 PSA Outpatient Referrals was scanned into [employer] and attached to record. ml4 07/01 10:12 T-Sheet-- Draft Copy was scanned into [employer] and attached to record. gb 10:12 ECG/EKG was scanned into [employer] and attached to record. gb Administered Medications: 06/30 13:05 Drug: NS 0.9% 1000 ml [sodium chloride 0.9 % intravenous solution] Route: IV; Rate: mk4 bolus; Site: left antecubital; 14:41 Drug: Oxazepam 30 mg [oxazepam 15 mg capsule (2 caps)] Route: PO; mk4 14:41 Drug: Thiamine 100 mg [thiamine HCl (vitamin B1) 100 mg tablet (1 tabs)] Route: PO; mk4 Signatures: Dispatcher [employer] EDMS Carie Raymundo MD MD sd1 Gisella Chaney, Reg Reg gb Marleny Armijo, PSA PSA ml4 Rudy James Margaret, RN RN mk4 Romina Ugarte DO DO jo4 The chart was reviewed and I authenticate all verbal orders and agree with the evaluation and treatment provided.Corrections: (The following items were deleted from the chart) 14:15 14:03 FT4&TSH PANEL+LAB ordered. EDMS EDMS Attachments: 16:11 [facility] Payment Agreement zo 07/01 10:12 T-Sheet-- Draft Copy gb 10:12 ECG/EKG gb Chart Complete MTDD
== END 2016-06-30 17:21 | disposition home or self-care (01) ==
LOC: M ED 12:12
DX: R00.2 Palpitations (principal); I10 Essential (primary) hypertension; F17.210 Nicotine dependence, cigarettes, uncomplicated; Z79.899 Other long term (current) drug therapy

== ENCOUNTER → 2018-01-07 | Outpatient (CLI) | payer OTHER ==
[2018-01-07 09:44] LABS: HEMATOCRIT 45.5 % (42.0-52.0); HEMOGLOBIN 15.4 g/dl (13.5-17.5); MEAN CORPUSCULAR HEMOGLOBIN 31.9 pg (27.0-33.0); MEAN CORPUSCULAR HGB CONC 33.8 g/dl (32.0-36.5); MEAN CORPUSCULAR VOLUME 94.2 fl (80.0-96.0); PLATELET COUNT, AUTOMATED 226 10^3/uL (150-450); RED BLOOD COUNT 4.83 10^6/uL (4.30-6.10); RED CELL DISTRIBUTION WIDTH 12.2 % (11.5-14.5); WHITE BLOOD COUNT 4.7 10^3/uL (4.0-10.0)
[2018-01-07 10:08] LABS: ALBUMIN 3.7 GM/DL (3.2-5.2); ALBUMIN/GLOBULIN RATIO 1.09 (1.00-1.93); ALKALINE PHOSPHATASE 91 U/L (45-117); ALT/SGPT 26 U/L (12-78); ANION GAP 9 MEQ/L (8-16); AST/SGOT 17 U/L (7-37); BILIRUBIN,TOTAL 0.2 MG/DL (0.2-1.0); BLOOD UREA NITROGEN 9 MG/DL (7-18); CALCIUM LEVEL 8.4 MG/DL (8.5-10.1); CARBON DIOXIDE LEVEL 28 MEQ/L (21-32); CHLORIDE LEVEL 104 MEQ/L (98-107); CREATININE FOR GFR 0.65 MG/DL (0.70-1.30); GLOMERULAR FILTRATION RATE > 60.0 (>60); GLUCOSE, FASTING 77 MG/DL (70-100); POTASSIUM SERUM 4.8 MEQ/L (3.5-5.1); SODIUM LEVEL 141 MEQ/L (136-145); TOTAL PROTEIN 7.1 GM/DL (6.4-8.2)
[2018-01-07 11:27] LABS: CHLAMYDIA DNA AMPLIFICATION NEGATIVE (NEGATIVE); GC DNA AMPLIFICATION NEGATIVE (NEGATIVE)
[2018-01-07 12:13] LABS: HEPATITIS B SURFACE ANTIGEN NEGATIVE (NEGATIVE)
[2018-01-07 12:41] LABS: HEPATITIS C VIRUS ABY INDEX < 0.0 INDEX (<0.8)
[2018-01-07 12:42] LABS: HIV 1&2 SCREEN CENTAUR NEGATIVE (NEGATIVE)
== END ==
LOC: M LAB 08:30
DX: F11.20 Opioid dependence, uncomplicated (principal)
CPT/HCPCS: 93005

== ENCOUNTER 2018-06-22 23:39 | Emergency (ER) | payer OTHER ==
[~2018-06-22] VITALS: Ht 165.1 cm; Wt 70.5 kg
[2018-06-22 23:50] VITALS: BP 148/93
== END 2018-06-23 00:46 | disposition left against medical advice (07) ==
LOC: M ED 23:39
DX: S01.81XA Laceration without foreign body of other part of head, initial encounter (principal); F10.120 Alcohol abuse with intoxication, uncomplicated; Y04.8XXA Assault by other bodily force, initial encounter; Y92.410 Unspecified street and highway as the place of occurrence of the external cause; F17.210 Nicotine dependence, cigarettes, uncomplicated

== ENCOUNTER 2018-06-23 04:11 | Emergency (ER) | payer OTHER ==
--- NOTE | 2018-06-23 04:57 | REPVR ---
EXAM: CT Head Without Contrast EXAM DATE/TIME: 06/23/2018 4:25 AM CLINICAL HISTORY: 42 years old, male; Injury or trauma; Fall TECHNIQUE: Axial computed tomography images of the head/brain without contrast. All CT scans at this facility use at least one of these dose optimization techniques: automated exposure control; mA and/or kV adjustment per patient size (includes targeted exams where dose is matched to clinical indication); or iterative reconstruction. COMPARISON: CT Head without contrast 04/13/2017 3:20 PM FINDINGS: Brain: Evaluation of the brain parenchyma is limited by motion. There is mild cerebral atrophy. The neville-white matter differentiation is grossly preserved. There is no intra-or extra-axial hemorrhage no mass effect. Ventricles: Normal. No ventriculomegaly. Bones/joints: See Sinuses Finding. Sinuses: There is mild right maxillary sinus mucosal thickening. There is fracture of the nasal process of the left maxillary bone. Mastoid air cells: Normal as visualized. No mastoid effusion. Soft tissues: There is significant left periorbital and supraorbital soft tissue swelling. IMPRESSION: 1. Left periorbital and supraorbital soft tissue swelling with no underlying skull fracture, intracranial hemorrhage, mass effect or midline shift. 2. Please refer to CT of the maxillofacial sinuses performed at the same time for detailed findings in the facial bones. Electronically signed by: Oswaldo Angulo On 06/23/2018 04:56:34 AM
--- NOTE | 2018-06-23 05:00 | REPVR ---
EXAM: CT Cervical Spine Without Contrast EXAM DATE/TIME: 06/23/2018 4:25 AM CLINICAL HISTORY: 42 years old, male; Injury or trauma; Fall; Initial encounter; Concussion /head injury TECHNIQUE: Axial computed tomography images of the cervical spine without intravenous contrast. All CT scans at this facility use at least one of these dose optimization techniques: automated exposure control; mA and/or kV adjustment per patient size (includes targeted exams where dose is matched to clinical indication); or iterative reconstruction. Coronal and sagittal reformatted images were created and reviewed. COMPARISON: CT Spine,cervical w/o contrast 04/13/2017 3:20 PM FINDINGS: Vertebrae: Mild atlantodens productive change is seen. Discs/Spinal canal/Neural foramina: There is left C5-C6 facet arthrosis minimally narrowing the neural foramina. Soft tissues: Unremarkable. Lungs: Lung apices are normal. Other findings: There is apparent fracture of the left lateral maxillary sinus wall. There is moderate bilateral maxillary sinuses mucosal thickening. IMPRESSION: 1. No CT evidence of traumatic cervical spine injury. 2. Please refer to CT of the maxillofacial bones performed at the same time for detailed findings in the facial bones and sinuses. Electronically signed by: Oswaldo Angulo On 06/23/2018 05:00:04 AM
--- NOTE | 2018-06-23 05:06 | REPVR ---
EXAM: CT Maxillofacial Without Contrast EXAM DATE/TIME: 06/23/2018 4:25 AM CLINICAL HISTORY: 42 years old, male; Injury or trauma; Fall; Initial encounter; Concussion /head injury; Loss of consciousness not known TECHNIQUE: Axial computed tomography images of the face without intravenous contrast. All CT scans at this facility use at least one of these dose optimization techniques: automated exposure control; mA and/or kV adjustment per patient size (includes targeted exams where dose is matched to clinical indication); or iterative reconstruction. Coronal and sagittal reformatted images were created and reviewed. COMPARISON: CT Maxilofacial w/out contrast 04/13/2017 3:20 PM FINDINGS: Orbits: There is moderate left periorbital and supraorbital soft tissue swelling. The orbital pastrana are intact. Sinuses: There is moderate bilateral maxillary sinuses mucosal thickening. Bones/joints: There is a fracture involving the nasal process of the left maxillary bone. There is minimal diastases involving the junction of the left zygomatic and maxillary bones. There are likely old fractures involving the anterior and lateral left maxillary sinus pastrana. Old fracture seen in the left zygomatic bone. Soft tissues: No significant facial soft tissue swelling. IMPRESSION: 1. Moderate left periorbital and supraorbital soft tissue swelling. 2. Fractures, most likely old, seen in the nasal processes of the left maxillary bone, anterior and lateral left maxillary sinus pastrana as well as the left zygomatic bone. No obvious acute fracture seen. 3. Moderate bilateral maxillary sinus mucosal thickening. Electronically signed by: Oswaldo Angulo On 06/23/2018 05:06:08 AM
[2018-06-23 09:26] VITALS: BP 123/65
== END 2018-06-23 10:03 | disposition home or self-care (01) ==
LOC: M ED 04:11
DX: F10.121 Alcohol abuse with intoxication delirium (principal); J32.0 Chronic maxillary sinusitis; Z72.0 Tobacco use
CPT/HCPCS: 70450; 70486; 72125; 99284; G0480

== ENCOUNTER 2018-07-01 16:01 | Emergency (ER) | payer OTHER ==
[~2018-07-01] VITALS: Ht 162.6 cm; Wt 72.7 kg
[2018-07-01] MEDS ORDERED: NS 1,000 ML IV ONE (16:30)
[2018-07-01] MEDS ORDERED: OXAZEPAM 15 MG CAP PO ONE (16:30)
[2018-07-01 16:39] LABS: BASO % 0.7 % (0.0-1.0); EOS # 0.1 10^3/uL (0.0-0.50); EOS % 3.5 % (0.0-3.0); HEMATOCRIT 44.1 % (42.0-52.0); LYMPH # 1.2 10^3/uL (1.5-4.5); LYMPH % 29.9 % (24.0-44.0); MEAN CORPUSCULAR HEMOGLOBIN 31.8 pg (27.0-33.0); MEAN CORPUSCULAR VOLUME 93.6 fl (80.0-96.0); MONO # 0.5 10^3/uL (0.0-0.8); MONO % 13.5 % (0.0-5.0); NEUTROPHILS # 2.1 10^3/uL (1.8-7.7); NEUTROPHILS % 52.2 % (36.0-66.0); PLATELET COUNT, AUTOMATED 118 10^3/uL (150-450); RED BLOOD COUNT 4.71 10^6/uL (4.30-6.10)
[2018-07-01 17:18] LABS: BLOOD UREA NITROGEN 7 MG/DL (7-18); CALCIUM LEVEL 8.4 MG/DL (8.5-10.1); CARBON DIOXIDE LEVEL 25 MEQ/L (21-32); CHLORIDE LEVEL 105 MEQ/L (98-107); GLOMERULAR FILTRATION RATE > 60.0 (>60); GLUCOSE, FASTING 108 MG/DL (70-100); POTASSIUM SERUM 5.7 MEQ/L (3.5-5.1); SODIUM LEVEL 137 MEQ/L (136-145)
[2018-07-01] MEDS ORDERED: OXAZ30CA2 PO (18:39)
[2018-07-01 19:06] VITALS: BP 138/88
== END 2018-07-01 19:07 | disposition home or self-care (01) ==
LOC: M ED 16:01
DX: R04.0 Epistaxis (principal); F10.20 Alcohol dependence, uncomplicated; F17.210 Nicotine dependence, cigarettes, uncomplicated

== ENCOUNTER → 2018-07-05 | Outpatient (CLI) | payer MEDICAID ==
[~2018-07-05] MED LIST: OXAZ30CA2 PO
== END ==
LOC: M OUTALCOH 10:24
PROVIDERS: ATTEND Psychiatry & Neurology Psychiatry
DX: Z13.9 Encounter for screening, unspecified (principal); F10.20 Alcohol dependence, uncomplicated

== ENCOUNTER 2018-07-14 15:00 | Outpatient (RCR) | payer MEDICAID | END 2018-07-21 | LOC: M OUTALCOH 15:00 | PROVIDERS: ATTEND Psychiatry & Neurology Psychiatry | DX: F11.20 Opioid dependence, uncomplicated (principal); F10.20 Alcohol dependence, uncomplicated; Z72.0 Tobacco use ==

== ENCOUNTER → 2018-10-18 | Outpatient (CLI) | payer MEDICAID | LOC: M OUTALCOH 09:40 | PROVIDERS: ATTEND Psychiatry & Neurology Psychiatry | DX: F10.20 Alcohol dependence, uncomplicated (principal) ==

== ENCOUNTER → 2018-11-11 | Outpatient (REF) | payer MEDICAID ==
[2018-11-19 09:34] LABS: CANNABINOID, URINE Positive (Cutoff=20); CARBOXY THC (GC/MS) 79 ng/mL (Cutoff=10); CREATININE, URINE 25.6 mg/dL (20.0-300.0)
== END ==
LOC: M LAB 19:24
PROVIDERS: ATTEND Family Medicine Addiction Medicine
DX: F11.11 Opioid abuse, in remission (principal)

== ENCOUNTER → 2018-11-18 | Outpatient (REF) | payer MEDICAID ==
[2018-11-24 00:09] LABS: CANNABINOID, URINE Positive (Cutoff=20); CARBOXY THC (GC/MS) 276 ng/mL (Cutoff=10); CREATININE, URINE 51.1 mg/dL (20.0-300.0)
== END ==
LOC: M LAB REF 18:35
PROVIDERS: ATTEND Family Medicine Addiction Medicine
DX: F11.11 Opioid abuse, in remission (principal)

== ENCOUNTER 2020-01-05 15:09 | Emergency (ER) | payer MEDICAID, OTHER ==
[~2020-01-05] VITALS: Ht 165.1 cm; Wt 71.6 kg
--- NOTE | 2020-01-05 16:41 | REP ---
LEFT HAND, FOUR VIEWS: Four views, left hand performed. There is a nondisplaced fracture at the base of the 5th metacarpal. There is associated soft tissue swelling. No other acute fracture or dislocation is seen. There is an old unfused ulnar styloid fracture. There are mild degenerative changes at the radiocarpal joint. IMPRESSION: Nondisplaced fracture base of 5th metacarpal. Electronically Signed by Luis Eduardo Faust MD 01/08/2020 09:49 A
[2020-01-05 16:50] VITALS: BP 131/91
== END 2020-01-05 16:51 | disposition home or self-care (01) ==
LOC: M ED 15:09
DX: S62.343A Nondisplaced fracture of base of third metacarpal bone, left hand, initial encounter for closed fracture (principal); W22.8XXA Striking against or struck by other objects, initial encounter; Y92.018 Other place in single-family (private) house as the place of occurrence of the external cause

== ENCOUNTER 2022-10-01 20:09 | Emergency (ER) | payer MEDICAID, OTHER ==
[~2022-10-01] VITALS: Ht 162.6 cm; Wt 72.5 kg
[2022-10-01 20:55] LABS: HEMATOCRIT 47.4 % (42.0-52.0); HEMOGLOBIN 16.3 g/dl (13.5-17.5); MEAN CORPUSCULAR HEMOGLOBIN 30.4 pg (27.0-33.0); MEAN CORPUSCULAR HGB CONC 34.4 g/dl (32.0-36.5); MEAN CORPUSCULAR VOLUME 88.3 fl (80.0-96.0); PLATELET COUNT, AUTOMATED 294 10^3/uL (150-450); RED BLOOD COUNT 5.37 10^6/uL (4.30-6.10); WHITE BLOOD COUNT 7.3 10^3/uL (4.0-10.0)
[2022-10-01 21:15] LABS: BARBITURATES URINE NEGATIVE (NEGATIVE); BENZODIAZEPINES URINE NEGATIVE (NEGATIVE); COCAINE METABOLITE URINE NEGATIVE (NEGATIVE)
[2022-10-01 21:16] LABS: METHADONE URINE NEGATIVE (NEGATIVE); OPIATES URINE NEGATIVE (NEGATIVE); PHENCYCLIDINE URINE NEGATIVE (NEGATIVE)
[2022-10-01 21:18] LABS: ETHYL ALCOHOL (ETHANOL) 0.289 % (0.000-0.010)
[2022-10-01 21:19] LABS: ACETAMINOPHEN LEVEL < 2.0 UG/ML (10.0-20.0); ALBUMIN 3.8 G/DL (3.2-5.2); ALKALINE PHOSPHATASE 91 U/L (46-116); ALT/SGPT 318 U/L (7.0-40); AMPHETAMINES LEVEL URINE POSITIVE (NEGATIVE); AST/SGOT 295 U/L (<34); BILIRUBIN,DIRECT 0.2 MG/DL (<0.4); BILIRUBIN,TOTAL 0.5 MG/DL (0.3-1.2); BLOOD UREA NITROGEN 6 MG/DL (9-23); CALCIUM LEVEL 8.8 MG/DL (8.5-10.1); CANNABINOIDS URINE POSITIVE (NEGATIVE); CARBON DIOXIDE LEVEL 24 MMOL/L (20-31); CHLORIDE LEVEL 103 MMOL/L (98-107); GLOMERULAR FILTRATION RATE > 60.0 (>60); GLUCOSE, FASTING 89 MG/DL (60-100); POTASSIUM SERUM 3.9 MMOL/L (3.5-5.1); SALICYLATE LEVEL < 3.0 MG/DL (<30); SODIUM LEVEL 137 MMOL/L (136-145); TOTAL PROTEIN 7.1 G/DL (5.7-8.2)
[2022-10-01 21:22] LABS: THYROID STIMULATING HORMONE 1.316 uIU/ML (0.55-4.78)
[2022-10-01] MEDS ORDERED: LORazepam 2 MG TAB PO ONE (22:15)
[2022-10-01] MEDS ORDERED: LORazepam 2 MG TAB PO PRN (22:45)
[2022-10-01] MEDS: THIAMINE 100 MG TAB PO SCH (23:43)
[2022-10-02] MEDS ORDERED: FOLIC ACID 1MG TAB PO SCH (09:00)
[2022-10-02] MEDS ORDERED: MULTIVITAMINS/MINERALS THERAP 1 TAB PO SCH (09:00)
[2022-10-02] MEDS: THIAMINE 100 MG TAB PO SCH (11:49)
[2022-10-02 15:33] VITALS: BP 145/97
[2022-10-02] MEDS ORDERED: BACTRIM 160MG/800MG DS TAB PO ONE (16:20)
[2022-10-02] MEDS ORDERED: SULF1TAB23 PO (16:21)
== END 2022-10-02 16:41 | disposition home or self-care (01) ==
LOC: M ED 20:09
DX: F10.129 Alcohol abuse with intoxication, unspecified (principal)